=== PATIENT | female | born 1950 | race Caucasian/White ===

== ENCOUNTER → 2018-05-26 | Outpatient (CLI) | payer BC, MEDICARE ==
--- NOTE | 2018-05-26 10:45 | XR ---
EXAMINATION TYPE: XR Hip Bilateral and AP pelvis DATE OF EXAM: 05/26/2018 COMPARISON: NONE HISTORY: Bilateral hip pain TECHNIQUE: Single view of the pelvis and bilateral views of the hips. FINDINGS: There is no evidence for fracture or dislocation. Mild degenerative joint space narrowing i s seen of the hips left slightly greater than right. Mild greater trochanteric spur formation seen bi laterally. Lower lumbar degenerative change identified. No bony lesions seen. IMPRESSION: 1. No evidence for fracture or dislocation. 2. Mild degenerative hip joint changes as noted.
== END ==
LOC: RADXRMAIN 10:03
PROVIDERS: ATTEND Physician Assistant
DX: M16.0 Bilateral primary osteoarthritis of hip (principal); E03.8 Other specified hypothyroidism; I10 Essential (primary) hypertension
CPT/HCPCS: 73521

== ENCOUNTER → 2018-05-26 | Outpatient (CLI) | payer MEDICARE, BC ==
[2018-05-26 17:50] LABS: Albumin 4.3 g/dL (3.80-4.90); Albumin/Globulin Ratio 1.95 (1.20-2.10); Anion Gap 3.6 mmol/L (4.00-12.00); Calcium 9.5 mg/dL (8.7-10.3); Carbon Dioxide 30.4 mmol/L (21.6-31.8); Globulin 2.2 g/dL (2.1-3.7); Potassium 4.1 mmol/L (3.5-5.5); Total Bilirubin 0.8 mg/dL (0.3-1.2); Total Protein 6.5 g/dL (6.2-8.2)
== END | disposition home or self-care (01) ==
LOC: LABWHC1 10:47
PROVIDERS: ATTEND Internal Medicine
DX: E03.8 Other specified hypothyroidism (principal); I10 Essential (primary) hypertension
CPT/HCPCS: 36415; 80053; 82533; 86376

== ENCOUNTER 2022-04-07 20:40 | Emergency (ER) | payer MEDICARE ==
[2022-04-07 21:18] VITALS: BP 131/89; PULSE 98; RESP 24; TEMP 99
--- NOTE | 2022-04-07 22:10 | XR ---
EXAMINATION TYPE: XR chest 2V DATE OF EXAM: 04/07/2022 COMPARISON: NONE HISTORY: Short of breath TECHNIQUE: 2 views there is no heart failure no confluent pneumonic infiltrate. Costophrenic angles are clear and no pl eural effusion. Bony thorax is intact. There is cervical spine fusion surgery. IMPRESSION: No active cardiopulmonary disease. Normal heart
[2022-04-07 23:00] LABS: Appearance,Urine Cloudy (Clear); Bacteria,Urine Moderate /hpf; Bilirubin,Urine Negative (Negative); Blood,Urine Negative (Negative); Color,Urine Light Yellow; Glucose,Urine (UA) Negative (Negative); Hyaline Casts,Urine 1 /lpf (0-2); Ketones,Urine Negative (Negative); Leukocyte Esterase,Urine Small (Negative); Mucus,Urine Rare /hpf; Nitrite,Urine Negative (Negative); PH, Urine 7.5 (5.0-8.0); Protein,Urine Negative (Negative); RBC,Urine <1 /hpf (0-5); Specific Gravity,Urine 1.012 (1.001-1.035); Squamous Epithelial Cell,Urine 6 /hpf (0-4); Urobilinogen,Urine <2.0 mg/dL (<2.0); WBC,Urine 3 /hpf (0-5)
[2022-04-07] MEDS ORDERED: KETOROLAC 15 MG/ML 1 ML VIAL IM STA (23:24)
[2022-04-07] MEDS ORDERED: ONDANSETRON ODT 4 MG TAB PO STA (23:24)
--- NOTE | 2022-04-07 23:29 | ED ---
General Adult HPI - General Chief complaint: Fever Stated complaint: fever,body aches Time Seen by Provider: 04/07/22 22:58 Source: patient, family, RN notes reviewed, old records reviewed Limitations: no limitations - History of Present Illness Initial comments: This is a nontoxic-appearing 71-year-old female that presents alert and oriented 4 with complaints of cough congestion headaches malaise and nausea that started yesterday. She states that she has had contact with multiple family members with also similar symptoms. She has been vaccinated and boosted against anjana navirus. She does have a history of hypertension, osteoarthritis, and colostomy. -: days(s) (2) Location: head Associated Symptoms: cough, fever/chills, headaches, malaise, nausea/vomiting Treatments Prior to Arrival: none - Related Data Allergies Allergy/AdvReac Type Severity Reaction Status Date / Time Iodinated Contrast Media Allergy Anaphylaxis Verified 04/07/22 21:17 morphine AdvReac Dyspnea Verified 04/07/22 21:17 Review of Systems ROS Statement: Those systems with pertinent positive or pertinent negative responses have been documented in the HPI. ROS Other: All systems not noted in ROS Statement are negative. Past Medical History Past Medical History: Chest Pain / Angina, Hyperlipidemia, Hypertension, Musculoskeletal Disorder, Osteoarthritis (OA) History of Any Multi-Drug Resistant Organisms: None Reported Past Surgical History: Bowel Resection, Orthopedic Surgery Additional Past Surgical History / Comment(s): 4 total shoulder procedures. colostomy, bladder sling, nose surg. Past Psychological History: No Psychological Hx Reported Smoking Status: Never smoker Past Alcohol Use History: None Reported Past Drug Use History: None Reported General Exam Limitations: no limitations General appearance: alert, in no apparent distress Head exam: Present: atraumatic, normocephalic, normal inspection Eye exam: Absent: scleral icterus, conjunctival injection, periorbital swelling ENT exam: Present: mucous membranes moist Neck exam: Present: full ROM. Absent: tenderness, meningismus Respiratory exam: Present: normal lung sounds bilaterally. Absent: respiratory distress, accessory muscle use Cardiovascular Exam: Present: regular rate GI/Abdominal exam: Present: soft, other (Colostomy) Extremities exam: Present: normal inspection, normal capillary refill Neurological exam: Present: alert, oriented X3 Psychiatric exam: Present: normal affect, normal mood Skin exam: Present: warm, dry, normal color. Absent: cyanosis, diaphoretic, erythema, petechiae, pallor, mottled Course Vital Signs 04/07/22 21:13 Temperature 99 F Pulse Rate 98 Respiratory 24 Rate Blood Pressure 131/89 O2 Sat by Pulse 96 Oximetry Medical Decision Making - Medical Decision Making Patient positive for coronavirus. She has been vaccinated with boosters. We did discuss paxlovid and she declined. Vital signs are stable. It is in no respiratory distress. She was encouraged to increase her fluid intake. Take mucinex, vitamin C, vitamin D, and zinc. She was instructed to self quarantine for 10 days from symptom onset. Return to the emergency room with any new or concerning symptoms: Chest pain, persistent nausea vomiting or difficulty breathing. She is agreeable to this plan of care. Attending is Dr. Arevalo - Lab Data Lab Results 04/07/22 04/07/22 Range/Units 21:19 22:20 Urine Color Light Yellow Urine Appearance Cloudy H (Clear) Urine pH 7.5 (5.0-8.0) Ur Specific [place] 1.012 (1.001-1.035) Urine Protein Negative (Negative) Urine Glucose (UA) Negative (Negative) Urine Ketones Negative (Negative) Urine Blood Negative (Negative) Urine Nitrite Negative (Negative) Urine Bilirubin Negative (Negative) Urine Urobilinogen <2.0 (<2.0) mg/dL Ur Leukocyte Esterase Small H (Negative) Urine RBC <1 (0-5) /hpf Urine WBC 3 (0-5) /hpf Ur Squamous Epith Cells 6 H (0-4) /hpf Urine Bacteria Moderate H (None) /hpf Hyaline Casts 1 (0-2) /lpf Urine Mucus Rare H (None) /hpf Coronavirus (PCR) Detected A (Not Detectd) Disposition Clinical Impression: COVID-19 Disposition: HOME SELF-CARE Condition: Good Instructions (If sedation given, give patient instructions): COVID-19 (Coronavirus Disease 2019) (ED) Additional Instructions: Increase your fluid intake. Take vitamin C, vitamin D and zinc daily to improve immune health. Tylenol and/or Motrin as needed for fevers or body aches. Follow-up with the primary care doctor as needed. Return to the emergency room with any new or concerning symptoms. Is patient prescribed a controlled substance at d/c from ED?: No Referrals: Jeannine Dsouza MD [Primary Care Provider] - 1-2 days Time of Disposition: 23:28
== END 2022-04-07 23:50 | disposition home or self-care (01) ==
LOC: EC 20:40
DX: U07.1 COVID-19 (principal); I10 Essential (primary) hypertension; Z91.041 Radiographic dye allergy status; Z88.5 Allergy status to narcotic agent
CPT/HCPCS: 71046; 81001; 87635; 99283; 99284

== ENCOUNTER 2023-05-26 14:58 | Emergency (ER) | payer MEDICARE ==
[2023-05-26] MEDS ORDERED: KETOROLAC 15 MG/ML 1 ML VIAL IM STA (15:46)
[2023-05-26] MEDS ORDERED: LIDOCAINE 5% PATCH TOPICAL STA (15:46)
--- NOTE | 2023-05-26 16:06 | ED ---
General Adult HPI - General Source: patient, RN notes reviewed, old records reviewed Mode of arrival: wheelchair Limitations: no limitations <Kyle Jim - Last Filed: 05/26/23 16:03> <Andrew Arevalo - Last Filed: 05/29/23 17:48> - General Chief complaint: Upper Respiratory Infection Stated complaint: cough/back pain Time Seen by Provider: 05/26/23 15:36 - History of Present Illness Initial comments: Patient is a 73-year-old female who presents with her over concern for upper respiratory symptoms. There've been on going for possibly one week. Patient's sick contact as a family member with sinusitis as well as her . Is complaining of a cough and sore throat. Has a history of hypertension, hyperlipidemia. Denies any chest pain but does endorse some posterior rib pain on the right from coughing so much. This is a mildly productive cough of clear mucus. No fevers. No abdominal pain, nausea, vomiting. Endorses sore throat. No other acute cholecystitis time. Presents for further evaluation. (Kyle Jim) This is a 73-year-old female DF for evaluation positive sick contacts recent symptoms of cough congestion bodyaches and pains rib pain. (Andrew Arevalo) - Related Data Previous Rx's Medication Instructions Recorded Azithromycin [Zithromax] 500 mg PO DAILY 5 Days #1 tab 05/26/23 Lidocaine 5% Patch [Lidoderm 5% 1 patch TOPICAL DAILY #14 patch 05/26/23 Patch] predniSONE 50 mg PO DAILY #5 tab 05/26/23 Allergies Allergy/AdvReac Type Severity Reaction Status Date / Time Iodinated Contrast Media Allergy Anaphylaxis Verified 05/26/23 15:17 morphine AdvReac Dyspnea Verified 05/26/23 15:17 Review of Systems ROS Other: All systems not noted in ROS Statement are negative. <Kyle Jim - Last Filed: 05/26/23 16:03> ROS Other: All systems not noted in ROS Statement are negative. <Andrew Arevalo - Last Filed: 05/29/23 17:48> ROS Statement: Those systems with pertinent positive or pertinent negative responses have been documented in the HPI. Review of Systems: CONST: Denies fever EYES: Denies blurry vision ENT: Endorses nasal congestion, cough C/V: Denies Chest pain RESP: Denies shortness of breath GI: Denies abdominal pain : Denies dysuria SKIN: Denies rash. MSK: Denies joint pain. NEURO: Denies headache (Kyle Jim) Past Medical History Past Medical History: Chest Pain / Angina, Hyperlipidemia, Hypertension, Musculoskeletal Disorder, Osteoarthritis (OA) History of Any Multi-Drug Resistant Organisms: None Reported Past Surgical History: Bowel Resection, Orthopedic Surgery Additional Past Surgical History / Comment(s): 4 total shoulder procedures. colostomy, bladder sling, nose surg. Past Psychological History: No Psychological Hx Reported Smoking Status: Never smoker Past Alcohol Use History: None Reported Past Drug Use History: None Reported <Kyle Jim - Last Filed: 05/26/23 16:03> General Exam Limitations: no limitations <Kyle Jim - Last Filed: 05/26/23 16:03> General appearance: alert, in no apparent distress Head exam: Present: atraumatic, normocephalic, normal inspection Eye exam: Present: normal appearance, PERRL, EOMI. Absent: scleral icterus, conjunctival injection, periorbital swelling ENT exam: Present: normal exam, mucous membranes moist Neck exam: Present: normal inspection. Absent: tenderness, meningismus, lymphadenopathy Respiratory exam: Present: normal lung sounds bilaterally. Absent: respiratory distress, wheezes, rales, rhonchi, stridor Cardiovascular Exam: Present: regular rate, normal rhythm, normal heart sounds. Absent: systolic murmur, diastolic murmur, rubs, gallop, clicks GI/Abdominal exam: Present: soft, normal bowel sounds. Absent: distended, tenderness, guarding, rebound, rigid Extremities exam: Present: normal inspection, full ROM, normal capillary refill. Absent: tenderness, pedal edema, joint swelling, calf tenderness Back exam: Present: normal inspection Neurological exam: Present: alert, oriented X3, CN II-XII intact Psychiatric exam: Present: normal affect, normal mood Skin exam: Present: warm, dry, intact, normal color. Absent: rash <Andrew Arevalo - Last Filed: 05/29/23 17:48> - General Exam Comments Initial Comments: General: Appears in no acute distress. HEAD: Normal with no signs of head trauma. EYES: PERRLA, EOMI, conjunctiva normal, no discharge. ENT: Hearing grossly intact, normal oropharynx. RESPIRATORY: Clear breath sounds bilaterally. No wheezes, rales, or rhonchi. No hypoxia. No increased work of breathing. C/V: Regular rate and rhythm. S1 and S2 auscultated, no edema, peripheral pulses 2+ and intact throughout ABD: Abd is soft, nontender, nondistended EXT: Normal range of motion, no obvious deformity. Patient does have posterior right-sided rib pain secondary to coughing. Seems to be muscle skeletal nature. SKIN: No rashes or lesions observed on exposed skin. NEURO: Alert and oriented x 4. (Kyle Jim) Course <Andrew Arevalo - Last Filed: 05/29/23 17:48> Vital Signs 05/26/23 05/26/23 15:15 18:22 Temperature 98 F 98.8 F Pulse Rate 64 58 L Respiratory 16 20 Rate Blood Pressure 142/77 139/74 O2 Sat by Pulse 96 94 L Oximetry - Reevaluation(s) Reevaluation #1: Medical record is reviewed (Andrew Arevalo) Reevaluation #2: Patient remains in no distress no significant acute complaints (Andrew Arevalo) Reevaluation #3: Patient informed results questions answered (Andrew Arevalo) Medical Decision Making <Kyle Jim - Last Filed: 05/26/23 16:03> - Radiology Data Radiology results: report reviewed (Chest x-rays negative for acute disease interpreted by me), image reviewed <Andrew Arevalo - Last Filed: 05/29/23 17:48> - Medical Decision Making Was pt. sent in by a medical professional or institution (, PA, HIM CLERK, urgent care, hospital, or care home...) When possible be specific @ -No Did you speak to anyone other than the patient for history (EMS, parent, family, police, friend...)? What history was obtained from this source @ -No Did you review nursing and triage notes (agree or disagree)? Why? @ -I reviewed and agree with nursing and triage notes Were old charts reviewed (outside hosp., previous admission, EMS record, old EKG, old radiological studies, urgent care reports/EKG's, care home records)? Report findings @ -No old charts were reviewed Differential Diagnosis (chest pain, altered mental status, abdominal pain women, abdominal pain men, vaginal bleeding, weakness, fever, dyspnea, syncope, headache, dizziness, GI bleed, back pain, seizure, CVA, palpatations, mental health, musculoskeletal)? @ -Covid, flu, pneumonia, strep pharyngitis. This list is not all-inclusive. EKG interpreted by me (3pts min.). @ -None done X-rays interpreted by me (1pt min.). @ -Pending CT interpreted by me (1pt min.). @ -None done U/S interpreted by me (1pt. min.). @ -None done What testing was considered but not performed or refused? (CT, X-rays, U/S, labs)? Why? @ -None What meds were considered but not given or refused? Why? @ -None Did you discuss the management of the patient with other professionals (professionals i.e. , PA, HIM CLERK, lab, RT, psych nurse, clinical social work therapist, box lining machine feeder, teacher, information security officer, comp field case manager)? Give summary @ -No Was smoking cessation discussed for >3mins.? @ -No Was critical care preformed (if so, how long)? @ -No Were there social determinants of health that impacted care today? How? (Homelessness, low income, unemployed, alcoholism, drug addiction, transportation, low edu. Level, literacy, decrease access to med. care, detention, rehab)? @ -No Was there de-escalation of care discussed even if they declined (Discuss DNR or withdrawal of care, Hospice)? DNR status @ -No What co-morbidities impacted this encounter? (DM, HTN, Smoking, COPD, CAD, Cancer, CVA, ARF, Chemo, Hep., AIDS, mental health diagnosis, sleep apnea, morbid obesity)? @ -None Was patient admitted / discharged? Hospital course, mention meds given and route, prescriptions, significant lab abnormalities, going to OR and other pertinent info. @ -Based on the patient's presentation and physical exam, presents for upper respiratory symptoms for we will obtain viral swabs, strep pharyngitis swab, as well as a chest x-ray. Patient also has some chest wall discomfort secondary to coughing. Likely muscle strain. We will apply a lidocaine patch and provided IM Toradol. Patient was in agreement this plan. Vital signs of any septal limits. Patient signed out to Dr. Arevalo. Undiagnosed new problem with uncertain prognosis? @ -No Drug Therapy requiring intensive monitoring for toxicity (Heparin, Nitro, Insulin, Cardizem)? @ -No Were any procedures done? @ -No (Kyle Jim) 73 female to the emergency department for evaluation of cough congestion chest wall pain from coughing, patient has normal testing here in the abnormal x-ray, patient feels improved can be discharged home (Andrew Arevalo) - Lab Data Lab Results 05/26/23 05/26/23 Range/Units 16:29 16:29 Influenza Type A (PCR) Not Detected (Not Detectd) Influenza Type B (PCR) Not Detected (Not Detectd) RSV (PCR) Not Detected (Not Detectd) SARS-CoV-2 (PCR) Not Detected (Not Detectd) Group A Strep (PCR) NOT DETECTED (Not Detectd) Disposition <Kyle Jim - Last Filed: 05/26/23 16:03> Is patient prescribed a controlled substance at d/c from ED?: No Time of Disposition: 18:00 <Andrew Arevalo - Last Filed: 05/29/23 17:48> Clinical Impression: Bronchitis, Upper respiratory tract infection Disposition: HOME SELF-CARE Condition: Good Instructions (If sedation given, give patient instructions): Acute Bronchitis (ED) Prescriptions: Lidocaine 5% Patch [Lidoderm 5% Patch] 1 patch TOPICAL DAILY #14 patch predniSONE 50 mg PO DAILY #5 tab Azithromycin [Zithromax] 500 mg PO DAILY 5 Days #1 tab Referrals: Jeannine Dsouza MD [Primary Care Provider] - 1-2 days
--- NOTE | 2023-05-26 17:08 | XR ---
EXAMINATION TYPE: XR chest 2V DATE OF EXAM: 05/26/2023 4:56 PM CLINICAL INDICATION:Female, 73 years old with history of cough; [facility] COMPARISON: Chest radiograph 04/07/2022. TECHNIQUE: XR chest 2V Frontal and lateral views of the chest. FINDINGS: Lungs/Pleura: There is no evidence of pleural effusion, focal consolidation, or pneumothorax. Pulmonary vascularity: Unremarkable. Heart/mediastinum: Cardiomediastinal silhouette is unremarkable. Musculoskeletal: No acute osseous pathology. Partially visualized cervical fusion hardware IMPRESSION: No acute cardiopulmonary disease/process.
[2023-05-26] MEDS ORDERED: AZITHROMYCIN 500 MG TAB PO STA (18:17)
[2023-05-26] MEDS ORDERED: predniSONE 20 MG TAB PO STA (18:17)
[2023-05-26 18:30] VITALS: BP 139/74; PULSE 58; RESP 20; TEMP 98.8
== END 2023-05-26 18:45 | disposition home or self-care (01) ==
LOC: EC 14:58
DX: J40 Bronchitis, not specified as acute or chronic (principal); J06.9 Acute upper respiratory infection, unspecified; I10 Essential (primary) hypertension; Z88.5 Allergy status to narcotic agent; Z91.041 Radiographic dye allergy status; Z20.822 Contact with and (suspected) exposure to COVID-19
CPT/HCPCS: 87651; 87636; 71046; 99284; 96372; J1885; J7512